=== PATIENT | male | born 1935 | race Caucasian/White ===

== ENCOUNTER → 2016-05-13 | Outpatient (CLI) | payer MEDICARE, BC | LOC: RAD 10:12 | DX: M89.9 Disorder of bone, unspecified (principal) | CPT/HCPCS: 70260; 73060 ==

== ENCOUNTER → 2016-06-24 | Outpatient (CLI) | payer MEDICARE, BC | LOC: KOH-I 12:40 | DX: M79.661 Pain in right lower leg (principal); R60.0 Localized edema; M25.561 Pain in right knee | CPT/HCPCS: 73564; 93971 ==